=== PATIENT | female | born 1995 | race Caucasian/White ===

== ENCOUNTER 2016-10-12 14:57 | Emergency (ER) | payer MEDICAID, OTHER ==
[2016-10-12 14:58] VITALS: BMI 25.6
[2016-10-12 15:48] VITALS: RESP 18; TEMP 98.2
--- NOTE | 2016-10-12 16:15 | C.PDOC ---
History Of Present Illness 21 yr old female who is 4 week , presents to the ER with complaints of pelvic pain for the past 2 days. Patient states she has not yet started care. Also denies fever, chills, chest pain, SOB, nausea, vomiting, dysuria, hematuria, incontinence, vaginal bleeding, vaginal discharge or back pain. Time Seen by Provider: 10/12/16 15:34 Chief Complaint (Nursing): Abdominal Pain History Per: Patient History/Exam Limitations: no limitations Onset/Duration Of Symptoms: Days (2 days) Past Medical History Reviewed: Historical Data, Nursing Documentation, Vital Signs Vital Signs: Last Vital Signs Temp 98.2 F 10/12/16 18:35 Pulse 77 10/12/16 18:35 Resp 18 10/12/16 18:35 BP 102/69 10/12/16 18:35 Pulse Ox 96 10/12/16 18:35 - Medical History PMH: Asthma, Depression Family History: States: No Known Family Hx - Social History Hx Tobacco Use: No Hx Alcohol Use: No Hx Substance Use: No Review Of Systems Except As Marked, All Systems Reviewed And Found Negative. Constitutional: Negative for: Fever, Chills Cardiovascular: Negative for: Chest Pain Respiratory: Negative for: Shortness of Breath Gastrointestinal: Negative for: Nausea, Vomiting Genitourinary: Positive for: Pelvic Pain. Negative for: Dysuria, Incontinence, Hematuria, Vaginal Discharge, Vaginal Bleeding Musculoskeletal: Negative for: Back Pain Physical Exam - Physical Exam Appears: Well, Non-toxic, No Acute Distress Skin: Warm, Dry, No Rash Head: Atraumatic, Normacephalic Oral Mucosa: Moist Neck: Normal, Normal ROM, Supple Chest: Symmetrical, No Tenderness Cardiovascular: Rhythm Regular, No Murmur Respiratory: Normal Breath Sounds, No Rales, No Rhonchi, No Stridor, No Wheezing Gastrointestinal/Abdominal: Normal Exam, Soft, No Tenderness, No Guarding, No Rebound Extremity: Normal ROM, No Swelling Neurological/Psych: Oriented x3, Normal Speech, Normal Motor ED Course And Treatment O2 Sat by Pulse Oximetry: 100 - CT Scan/US US CT/US Interpretation: Impression: No intrauterine gestational sac identified. Medical Decision Making Medical Decision Making: PLAN: * US - Transvaginal * BETA HCG * Urinalysis As discussed with pt Quant only ~500 US empty uterus ?corpus luteal cyst on left Early IUV vs ectopic Pt instructed to return to the ED in 2 days for repeat evaluation, return at once if pain or bleeding Disposition Counseled Patient/Family Regarding: Diagnosis, Need For Followup - Disposition Disposition: HOME/ ROUTINE Disposition Time: 18:16 Condition: GOOD Additional Instructions: Return to the ED in 2 days to have repeat evaluation Return at once for any new or worsening symptoms Instructions: Abdominal Pain in (ED) Print Language: ALBANIAN - Clinical Impression Clinical Impression: Abdominal pain during - Scribe Statement The provider has reviewed the documentation as recorded by the Bibi Pedroza Provider Attestation: All medical record entries made by the Bibi were at my direction and personally dictated by me. I have reviewed the chart and agree that the record accurately reflects my personal performance of the history, physical exam, medical decision making, and the department course for this patient. I have also personally directed, reviewed, and agree with the discharge instructions and disposition.
[2016-10-12 17:02] LABS: RBC URINE 2 /hpf (0-3); URINE BACTERIA RARE (<OCC); URINE BILIRUBIN NEGATIVE (NEGATIVE); URINE BLOOD NEGATIVE (NEGATIVE); URINE COLOR Yellow (YELLOW); URINE GLUCOSE (UA) NORMAL (Normal); URINE KETONE NEGATIVE (NEGATIVE); URINE LEUKOCYTE ESTERASE NEG Leu/uL (Negative); URINE PROTEIN NEGATIVE (NEGATIVE); URINE UROBILINOGEN NORMAL mg/dL (0.2-1.0); WBC URINE 2 /hpf (0-5)
--- NOTE | 2016-10-12 17:55 | US ---
Indication: 4 weeks , pain, no bleeding Comparison: Pelvic ultrasound performed 06/12/16 Technique: Real-time transabdominal pelvic ultrasound was performed. In addition a transvaginal pelvic ultrasound was necessary to better depict pelvic anatomy Findings: The uterus measures approximately 8.6 x 4.3 x 5.0 cm. Anteverted. Cervix length measures approximately 4.0 cm. Endometrium measures approximately 1 cm in diameter. No evidence of intrauterine gestational sac. The right ovary measures 3.1 x 1.4 x 2.3 cm. 0.7 x 0.6 x 0.6 cm echogenic focus within the right ovary, indeterminate. The left ovary measures 3.1 x 2.8 x 2.3 cm. 1.3 x 1.2 x 1.2 cm complex left cystic lesion, possibly corpus luteal cyst. Blood flow was demonstrated to both ovaries. Pelvic free fluid is noted within the cul-de-sac. Impression: No intrauterine gestational sac identified. If indeed the patient is based on serum beta HCG values, the sonographic findings represent either: Very early IUP; embryonic demise; ectopic gestation. Follow-up with serial quantitative serum beta HCG measurements and post OBGYN follow-up is mandatory, since ectopic gestation cannot be excluded based only on sonographic findings. 1.3 cm suspected left corpus luteal cyst. Indeterminate 0.7 cm echogenic focus within the right ovary. Recommend continued attention on follow-up ultrasounds. Small pelvic free fluid.
[2016-10-12 18:35] VITALS: BP 102/69; PULSE 77
[2016-10-15 16:08] VITALS: O2SAT 100
== END 2016-10-12 18:35 | disposition home or self-care (01) ==
LOC: C.ER 14:57
DX: O26.891 Other specified pregnancy related conditions, first trimester (principal); R10.9 Unspecified abdominal pain; Z3A.01 Less than 8 weeks gestation of pregnancy

== ENCOUNTER 2016-10-23 19:16 | Emergency (ER) | payer MEDICAID, OTHER ==
[2016-10-23 19:16] VITALS: BMI 25.6
[2016-10-23] MEDS ORDERED: Sodium Chloride 0.9% 1,000 ML IV ONE (20:00)
--- NOTE | 2016-10-23 20:12 | C.PDOC ---
History Of Present Illness Patient is a 21 year old female who presents to the ER with a complaint of vaginal spotting and cramping abdominal pain. Patient states she is 6 weeks and her LMP was September 03. Patient also notes some bleeding occurring earlier. Patient denies fever, chills, nausea, vomiting or diarrhea. Chief Complaint (Nursing): Abdominal Pain History Per: Patient History/Exam Limitations: no limitations Onset/Duration Of Symptoms: Hrs Current Symptoms Are (Timing): Still Present Location Of Pain/Discomfort: Suprapubic Quality Of Discomfort: Cramping Associated Symptoms: denies: Fever, Chills, Nausea, Vomiting, Diarrhea Alleviating Factors: None Recent travel outside of the [place]: No Abnormal Vaginal Bleeding: Yes Past Medical History Reviewed: Historical Data, Nursing Documentation, Vital Signs Vital Signs: Last Vital Signs Temp 98 F 10/23/16 19:37 Pulse 63 10/23/16 19:37 Resp 22 10/23/16 19:37 BP 115/63 10/23/16 19:37 Pulse Ox 99 10/23/16 22:42 - Medical History PMH: Asthma, Depression Surgical History: No Surg Hx Family History: States: Unknown Family Hx - Social History Hx Tobacco Use: No Hx Alcohol Use: No Hx Substance Use: No - Immunization History Hx Tetanus Toxoid Vaccination: No Hx Influenza Vaccination: No Hx Pneumococcal Vaccination: No Review Of Systems Constitutional: Negative for: Fever, Chills Gastrointestinal: Positive for: Abdominal Pain (Cramping). Negative for: Nausea , Vomiting, Diarrhea Genitourinary: Positive for: Vaginal Bleeding Physical Exam - Physical Exam Appears: Well, Non-toxic Skin: Normal Color, Warm, Dry Head: Atraumatic, Normacephalic Eye(s): bilateral: Normal Inspection, EOMI Oral Mucosa: Moist Chest: Symmetrical, No Tenderness Cardiovascular: Rhythm Regular, No Murmur Respiratory: Normal Breath Sounds, No Rales, No Rhonchi, No Wheezing Gastrointestinal/Abdominal: Soft, Tenderness (hypogastric), No Guarding, No Rebound Pelvic: Normal Speculum Exam, No Vaginal Bleeding, No Cervical Motion Tenderness , No Adnexal Tenderness, Other (Old blood from previous bleed) Neurological/Psych: Oriented x3, Normal Speech, Normal Cognition ED Course And Treatment - Laboratory Results Result Diagrams: 10/23/16 20:13 10/23/16 20:13 O2 Sat by Pulse Oximetry: 99 (Room air) Pulse Ox Interpretation: Normal - CT Scan/US Transvaginal US Other Rad Studies (CT/US): Interpreted By Me, Read By Radiologist CT/US Interpretation: IMPRESSION: 1. Single live intrauterine gestation. bradycardia. Close followup is recommended. 2. Possible RIGHT ovarian dermoid. 3. Incidental/non-acute findings are described above. Progress Note: Blood work, urinalysis and transvaginal US ordered. IV fluids administered. Disposition Counseled Patient/Family Regarding: Diagnosis - Disposition Referrals: at [facility] [Outside] Disposition: HOME/ ROUTINE Disposition Time: 22:41 Condition: STABLE Instructions: Threatened Miscarriage (ED) Forms: Gen Discharge Inst Syriac Print Language: KHMER - POA Present On Arrival: None - Clinical Impression Clinical Impression: Vaginal bleeding, Threatened in early - Scribe Statement The provider has reviewed the documentation as recorded by the Scribe Sidney Randall All medical record entries made by the Scribe were at my direction and personally dictated by me. I have reviewed the chart and agree that the record accurately reflects my personal performance of the history, physical exam, medical decision making, and the department course for this patient. I have also personally directed, reviewed, and agree with the discharge instructions and disposition.
[2016-10-23 20:19] LABS: BASO # 0.1 K/uL (0.0-0.2); BASO % 0.5 % (0.0-2.0); EOS # 0.1 K/uL (0.0-0.7); EOS % 0.5 % (0.0-4.0); HEMATOCRIT 37.5 % (34.0-47.0); LYMPH # 3.8 K/uL (1.0-4.3); LYMPH % 32.8 % (20.0-40.0); MEAN CELL VOLUME 90.5 fL (81.0-99.0); MEAN CORPUSCULAR HGB CONC 34.3 g/dL (33.0-37.0); MEAN PLATELET VOLUME 8.5 fL (7.2-11.7); MONO # 0.7 K/uL (0.0-0.8); MONO % 6.5 % (0.0-10.0); RED CELL DISTRIBUTION WIDTH 12.6 % (11.5-14.5); WHITE BLOOD COUNT 11.5 K/uL (4.8-10.8)
[2016-10-23 20:23] LABS: RBC URINE < 1 /hpf (0-3); URINE BILIRUBIN NEGATIVE (NEGATIVE); URINE COLOR Colorless (YELLOW); URINE GLUCOSE (UA) NORMAL (Normal); URINE KETONE NEGATIVE (NEGATIVE); URINE LEUKOCYTE ESTERASE NEG Leu/uL (Negative); URINE PROTEIN NEGATIVE (NEGATIVE); URINE UROBILINOGEN NORMAL mg/dL (0.2-1.0); WBC URINE 1 /hpf (0-5)
[2016-10-23 20:26] LABS: CHLORIDE 99 mmol/L (98-107)
[2016-10-23 20:27] LABS: INR 1.2; SODIUM 136 mmol/L (132-148)
[2016-10-23 20:28] LABS: POTASSIUM 3.7 mmol/L (3.6-5.2)
[2016-10-23 20:29] LABS: URINE BLOOD NEGATIVE (NEGATIVE)
[2016-10-23 20:30] LABS: ALB/GLOB RATIO 1.2 (1.0-2.1); ALKALINE PHOSPHATASE 55 U/L (38-126); ALT/SGPT 19 U/L (9-52); AST/SGOT 19 U/L (14-36); BILIRUBIN,TOTAL 0.4 mg/dL (0.2-1.3); BLOOD UREA NITROGEN 12 mg/dL (7-17); CARBON DIOXIDE 26 mmol/L (22-30); GFR AFRICAN-AMERICAN > 60; GLUCOSE,RANDOM 82 mg/dL (65-105); TOTAL PROTEIN 7.2 g/dL (6.3-8.3)
[2016-10-23 20:31] LABS: CALCIUM 8.9 mg/dl (8.6-10.4)
--- NOTE | 2016-10-23 22:21 | US ---
EXAM: US , Transvaginal CLINICAL HISTORY: 21 years old, female; Signs and symptoms; Lmp or gestational age (in weeks): 09/13/2016; Other: Preg/bleeding; ; Additional info: Vaginal bleed TECHNIQUE: Real-time transvaginal obstetrical ultrasound of the maternal pelvis and a first trimester with image documentation. Transvaginal imaging was used for better evaluation of the fetus and adnexa. COMPARISON: PELVIS/TRANSVAG US 06/12/2016 8:02:19 PM FINDINGS: Gestation: Single live intrauterine gestation. heart rate of 93 beats per minute. [place]-rump length of 0.26 cm, correlating with gestational age of 5 weeks 6 days. Uterus/cervix: No subchorionic hemorrhage. No cervical dilatation or effacement. Ovaries: RIGHT ovary: 0.5 x 0.5 x 0.7 cm hyperechoic lesion. LEFT ovary: Probable corpus luteal cyst. No adnexal masses. Free fluid: No significant free fluid. IMPRESSION: 1. Single live intrauterine gestation. bradycardia. Close followup is recommended. 2. Possible RIGHT ovarian dermoid. 3. Incidental/non-acute findings are described above.
[2016-10-23 22:57] VITALS: BP 97/58; PULSE 80; RESP 18; TEMP 97.8; O2SAT 100
== END 2016-10-23 22:57 | disposition home or self-care (01) ==
LOC: C.ER 19:16
DX: O20.0 Threatened abortion (principal); Z3A.01 Less than 8 weeks gestation of pregnancy
CPT/HCPCS: 76817; 80053; 81001; 84702; 85025; 85610; 85730; 86850; 86900; 96360; 99284; J7040

== ENCOUNTER 2016-11-22 17:38 | Emergency (ER) | payer MEDICAID ==
[2016-11-22 17:38] VITALS: BMI 25.6
[2016-11-22 17:43] VITALS: TEMP 98.5
[2016-11-22 18:19] VITALS: BP 106/58; PULSE 85; RESP 16; O2SAT 99
--- NOTE | 2016-11-22 19:13 | C.PDOC ---
History Of Present Illness Pt left without being seen. Chief Complaint (Nursing): Back Pain Past Medical History Vital Signs: Last Vital Signs Temp 98.5 F 11/22/16 17:42 Pulse 85 11/22/16 18:13 Resp 16 11/22/16 18:13 BP 106/58 L 11/22/16 18:13 Pulse Ox 99 11/23/16 09:01 - Medical History PMH: Asthma, Depression Family History: States: Unknown Family Hx - Social History Hx Tobacco Use: No Hx Alcohol Use: No Hx Substance Use: No - Immunization History Hx Tetanus Toxoid Vaccination: No Hx Influenza Vaccination: No Hx Pneumococcal Vaccination: No ED Course And Treatment O2 Sat by Pulse Oximetry: 99 Disposition - Disposition Disposition: LEFT W/O BEING SEEN - ER ONLY Disposition Time: 21:10 Condition: UNKNOWN - POA Present On Arrival: None - Clinical Impression Clinical Impression: Back pain - Scribe Statement The provider has reviewed the documentation as recorded by the Scribe Alla harper All medical record entries made by the Scribe were at my direction and personally dictated by me. I have reviewed the chart and agree that the record accurately reflects my personal performance of the history, physical exam, medical decision making, and the department course for this patient. I have also personally directed, reviewed, and agree with the discharge instructions and disposition.
== END 2016-11-22 19:11 | disposition left against medical advice (07) ==
LOC: C.ER 17:38
DX: M54.9 Dorsalgia, unspecified (principal); Z02.9 Encounter for administrative examinations, unspecified

== ENCOUNTER 2017-01-23 13:03 | Emergency (ER) | payer MEDICAID ==
[2017-01-23 13:03] VITALS: BMI 25.6
[2017-01-23 13:20] VITALS: BP 109/67; PULSE 85; RESP 20; TEMP 98.6; O2SAT 100
[2017-01-23 14:55] LABS: RBC URINE < 1 /hpf (0-3); URINE BILIRUBIN NEGATIVE (NEGATIVE); URINE BLOOD NEGATIVE (NEGATIVE); URINE COLOR Yellow (YELLOW); URINE GLUCOSE (UA) NORMAL (Normal); URINE KETONE NEGATIVE (NEGATIVE); URINE LEUKOCYTE ESTERASE NEG Leu/uL (Negative); URINE PROTEIN NEGATIVE (NEGATIVE); URINE UROBILINOGEN NORMAL mg/dL (0.2-1.0); WBC URINE 3 /hpf (0-5)
--- NOTE | 2017-01-23 15:28 | C.PDOC ---
History Of Present Illness 21 y/o female, 18 weeks , presents to ED for evaluation of brief episode of anxiety [employer]. Patient states her symptoms have now resolved. Pt has seen here several times throughout her for similar symptoms with negative work up. Pt denies monitoring today. Otherwise, denies any chest pain, shortness of breath, headache, fever, chills, cough, nausea, vomiting, diarrhea, changes in bowel habits, dysuria, hematuria, frequency, flank pain, vaginal discharge, or vaginal bleeding. Time Seen by Provider: 01/23/17 14:09 Chief Complaint (Nursing): Palpitations History Per: Patient History/Exam Limitations: no limitations Onset/Duration Of Symptoms: Hrs Current Symptoms Are (Timing): Gone Severity: None Pain Scale Rating Of: 0 Reports Recently: Seen In ED Recent travel outside of the [place]: No Additional History Per: Patient Past Medical History Reviewed: Historical Data, Nursing Documentation, Vital Signs Vital Signs: Last Vital Signs Temp 98.6 F 01/23/17 13:15 Pulse 85 01/23/17 13:15 Resp 20 01/23/17 15:23 BP 109/67 01/23/17 13:15 Pulse Ox 100 01/23/17 15:53 - Medical History PMH: Asthma, Depression Family History: States: Unknown Family Hx - Social History Hx Tobacco Use: No Hx Alcohol Use: No Hx Substance Use: No - Immunization History Hx Tetanus Toxoid Vaccination: No Hx Influenza Vaccination: No Hx Pneumococcal Vaccination: No Review Of Systems Except As Marked, All Systems Reviewed And Found Negative. Constitutional: Negative for: Fever, Chills Cardiovascular: Negative for: Chest Pain, Palpitations Respiratory: Negative for: Cough, Shortness of Breath Gastrointestinal: Negative for: Nausea, Vomiting, Abdominal Pain Genitourinary: Negative for: Dysuria, Frequency, Hematuria, Vaginal Discharge, Vaginal Bleeding, Pelvic Pain Musculoskeletal: Negative for: Back Pain Neurological: Negative for: Headache, Dizziness Psych: Positive for: Anxiety Physical Exam - Physical Exam Appears: Non-toxic, No Acute Distress (comfortable), Other (calm, cooperative) Skin: Normal Color, Warm, Dry Head: Atraumatic, Normacephalic Eye(s): bilateral: Normal Inspection, EOMI Oral Mucosa: Moist Neck: Normal ROM, Supple Chest: Symmetrical Cardiovascular: Rhythm Regular, No Murmur Respiratory: Normal Breath Sounds, No Rales, No Rhonchi, No Wheezing Gastrointestinal/Abdominal: Soft, No Tenderness Extremity: Bilateral: Atraumatic, Normal ROM Neurological/Psych: Oriented x3, Normal Speech, Normal Cognition ED Course And Treatment - Laboratory Results Lab Interpretation: Normal (UA neg) O2 Sat by Pulse Oximetry: 100 (on RA) Pulse Ox Interpretation: Normal Medical Decision Making Medical Decision Making: pret approx 18 weeks, with normal progression acute near-syncope with panic/anxiety-like symptomology in pt with h/o same. No w/u required as pt asymptomatic 6 hours later and h/o same with neg w/u's UA neg pt eloped prior to d/c w normal UA results. Disposition Doctor Will See Patient In The: Office - Disposition Disposition: ELOPEMENT - ER ONLY Disposition Time: 15:00 Condition: GOOD Forms: [employer] (Colombian) - Clinical Impression Clinical Impression: Palpitations, Anxiety, - Scribe Statement The provider has reviewed the documentation as recorded by the Mayelinibhari Benjamin All medical record entries made by the Mayelinibhari were at my direction and personally dictated by me. I have reviewed the chart and agree that the record accurately reflects my personal performance of the history, physical exam, medical decision making, and the department course for this patient. I have also personally directed, reviewed, and agree with the discharge instructions and disposition.
--- NOTE | 2017-01-23 20:05 | CARD ---
APPROVED REPORT EKG Measurement Heart [id number] <Conclusion> Normal sinus rhythm Normal ECG
== END 2017-01-23 15:21 | disposition left against medical advice (07) ==
LOC: C.ER 13:03
DX: O26.892 Other specified pregnancy related conditions, second trimester (principal); F41.9 Anxiety disorder, unspecified; R00.2 Palpitations; Z3A.18 18 weeks gestation of pregnancy

== ENCOUNTER 2017-03-13 13:14 | Emergency (ER) | payer MEDICAID ==
[2017-03-13 14:54] LABS: RBC URINE 1 /hpf (0-3); URINE BACTERIA OCC (<OCC); URINE BILIRUBIN NEGATIVE (NEGATIVE); URINE BLOOD NEGATIVE (NEGATIVE); URINE COLOR Yellow (YELLOW); URINE GLUCOSE (UA) NORMAL (Normal); URINE KETONE NEGATIVE (NEGATIVE); URINE LEUKOCYTE ESTERASE NEG Leu/uL (Negative); URINE PROTEIN NEGATIVE (NEGATIVE); URINE UROBILINOGEN NORMAL mg/dL (0.2-1.0); WBC URINE 5 /hpf (0-5)
--- NOTE | 2017-03-13 15:03 | OBHP ---
Datetime: 03/13/2017 14:22 IP Adm Impression: No Active Labor IP Chief Complaint Other: abdominal pain and back pain Admit Comment, IP Provider: chief compalint-abdominal pain and back pain HPI 21 y/o at 27weeks and 3 days with c/o abdominal pain and bacl pain.also feels she has mike e discharge.denies vaginal bleeding DEnies fever , chills, burning urination or dysuria 12 point ros neg except as stated in HPI PMH denies PSH denies OBGYN HX ' NVDX2 Social hx denies tobacco,alcohol or illicit drug use Exam see exam section A/P Patient with x/o abdominal pain and back pain.cervix closedl.clinically no signs of labor.no c va tenderness -send UA -monitor closely 3.01pm UA neg for nitrites and LE Patient feels betetr when lying down A/P Ptaient with discomfort due to pregnacy.no active labor.membranes clinically intact -patient discharged homne -follow up in clinic this week -ptl,pprom precautions given Pelvic Type - PN: Adequate Extremities - PN: Normal Abdomen - PN: Normal Back - PN: Normal Lungs - PN: Normal Heart - PN: Normal Neurologic - PN: Normal General - PN: Normal Contraction Comments Provider: none Comments, ACOG Physical Exam: speculum exam-no pooling; nitrazine and ferning neg cervix closedl. thick and high Gestation - Est Wks by US: 27.3 EGA AdmitDate IP: 27.3 Vital Signs Provider: Reviewed; Within Normal Limits IP Chief Complaint: Other FHR Category Provider Fetus A: Category I Dilatation, Provider: 0 Effacement, Provider: thick Station, Provider: high Genitourinary Exam: Normal DTRs - PN: Normal
[2017-03-13 19:18] VITALS: BP 119/65; PULSE 82; RESP 18; TEMP 98.2
== END 2017-03-13 15:07 | disposition home or self-care (01) ==
LOC: C.EROB 13:14
DX: O26.892 Other specified pregnancy related conditions, second trimester (principal); R10.9 Unspecified abdominal pain; M54.9 Dorsalgia, unspecified; Z3A.27 27 weeks gestation of pregnancy

== ENCOUNTER 2017-05-22 12:09 | Emergency (ER) | payer MEDICAID ==
--- NOTE | 2017-05-22 12:59 | OBHP ---
Datetime: 05/22/2017 12:31 IP Adm Impression: No Active Labor; Intact Membranes IP Admit Plan: Discharge home Admit Comment, IP Provider: chief complaint-lekaing of fluid HPI 21 y/o at 35.6 wga with c/o ane psidoe of leaking small amount of fluid.Patient denies na usea, vomiting, headache, chest pain, shortness of breath, numbness or tingling in hands and feet course uncomplicated PMH denies PSH denies OBGYN HX ' NVDX2 SOCIAL HX -Denies tobacco,alcohol or illicit drug use Exam see exam section A/P Patient at 35.6 wga with c/o episode of leaking of fluid and pelvic pressure.cervix closed.florencio wesley clinically intact -discharge home -follow up in clinic next week Pelvic Type - PN: Adequate Extremities - PN: Normal Abdomen - PN: Normal Back - PN: Normal Lungs - PN: Normal Heart - PN: Normal General - PN: Normal Weight - Estimated: 2800 Presentation-Admit: Vertex Membranes, Provider: Intact Gestation - Est Wks by US: 35.6 Pool Provider: Negative Nitrazine Provider: Negative Ferning Provider: Negative IP Hx Assessment: The History has been Reviewed and is Current EGA AdmitDate IP: 35.6 Vital Signs Provider: Reviewed; Within Normal Limits IP Chief Complaint: Suspected ruptured membranes FHR Category Provider Fetus A: Category I Dilatation, Provider: 0 Effacement, Provider: thick Station, Provider: high Genitourinary Exam: Normal DTRs - PN: Normal
[2017-05-22 16:55] VITALS: BP 114/64; PULSE 98
== END 2017-05-22 12:54 | disposition home or self-care (01) ==
LOC: C.EROB 12:09
DX: O47.03 False labor before 37 completed weeks of gestation, third trimester (principal); Z3A.35 35 weeks gestation of pregnancy

== ENCOUNTER 2017-06-13 13:26 | Emergency (ER) | payer MEDICAID ==
[2017-06-13 13:40] VITALS: BMI 29.6
--- NOTE | 2017-06-13 14:01 | OBHP ---
Datetime: 06/13/2017 13:52 IP Adm Impression: Term, intrauterine Admit Comment, IP Provider: at 39weeks came with c/o dec fm from the morning. baby moving less. no ctxs, vb.pt feels baby moving now. obhx 1 xsab, 2 x pmh den med pnv all nkda psh den soch de ve closed nst 130 mod jase ctg1 a/p at 39weeks dec fm nst bpp cont susan and efm cont close observ Pelvic Type - PN: Adequate Extremities - PN: Normal Abdomen - PN: Normal Back - PN: Normal Breast - PN: Normal Lungs - PN: Normal Heart - PN: Normal Thyroid - PN: Normal Neurologic - PN: Normal HEENT - PN: Normal General - PN: Normal FHR - Baseline A Provider: 130 Contraction Comments Provider: occ Comments, ACOG Physical Exam: gravid,non tender ext no edema,no calf ten EGA AdmitDate IP: 39.0 Vital Signs Provider: Reviewed; Within Normal Limits IP Chief Complaint: Decreased movement NICHD Variability Prov Fetus A: Moderate 6-25bpm NICHD Accel Fetus A IP Provider: [id number] FHR Category Provider Fetus A: Category I Genitourinary Exam: Normal DTRs - PN: Normal
--- NOTE | 2017-06-13 15:18 | US ---
OB limited/biophysical profile Indication: Decreased motion Comparison: Ob transvaginal ultrasound performed 10/23/16 Technique: Real-time ultrasound was performed through the pelvis. Findings: There is a single living fetus in vertex presentation. Posterior placenta. The placenta does not appear previa. Bilateral ovaries are not identified. Cervix length measures approximately 4.5 cm. The study was performed for the emergent evaluation of decreased motion, and the whole anatomic survey of the fetus was not performed. This should be performed on an outpatient elective basis as clinically warranted. Measurements and calculations: Fetus has a composite sonographic age of 36 weeks 6 days. This calculation is based on the biparietal diameter, head circumference, abdominal circumference, and femur length. Estimated heart rate 129.2 beats per min. Estimated weight 3059 g 458.9 g Biophysical profile: movements 2/2 breathing 2/2 tone 2/2 Amniotic fluid 2/2 Total score impression: 01/09 Impression: Single living fetus with a composite sonographic age of 36 weeks 6 days. Estimated heart rate 129.2 beats per min. Biophysical profile of 8 out of 8.
--- NOTE | 2017-06-13 15:38 | OBHP ---
Datetime: 06/13/2017 13:52 Admit Comment, IP Provider: at 39weeks came with c/o dec fm from the morning. baby moving less. no ctxs, vb.pt feels baby moving now. obhx 1 xsab, 2 x pmh den med pnv all nkda psh den soch de ve closed nst 130 mod jase ctg1 a/p at 39weeks dec fm nst bpp cont susan and efm cont close observ pt had sonogram bpp 8/8 nst 130 mod jase tg 1 dc home labor ins given p o hrationf/u pmd on sunday EGA AdmitDate IP: 39.0
--- NOTE | 2017-06-13 15:38 | OBDCSUM ---
Datetime: 06/13/2017 15:27 Discharged to, Provider: Home Follow up at, Provider: [facility] Disch Instr Activity: Normal activity Disch Instr Diet: Regular Discharge Time: 06/13/2017 15:28 Disch Referrals: None Disch Activity Restrictions: No lifting Discharge Comment, Provider: dc home labor ins given p o hrationf/u pmd on sunday Discharge Diagnosis Prov Other: 39 wek nst dec fm
[2017-06-13 21:43] VITALS: BP 124/57; PULSE 83; O2SAT 98
== END 2017-06-13 17:41 | disposition home or self-care (01) ==
LOC: C.EROB 13:26
DX: O36.8130 Decreased fetal movements, third trimester, not applicable or unspecified (principal); Z3A.39 39 weeks gestation of pregnancy

== ENCOUNTER 2017-06-19 14:55 | Inpatient (IN) | payer MEDICAID ==
[2017-06-19 18:46] VITALS: BMI 27.3
[2017-06-19] MEDS: Lactated Ringer's 1,000 ML IV SCH (19:45)
[2017-06-19] MEDS ORDERED: Penicillin G 5 Million Unit Vial IVPB ONE (20:18)
--- NOTE | 2017-06-19 20:46 | OBADHP ---
Datetime: 06/19/2017 20:40 Admit Comment, IP Provider: chief complaint-scheduled induction of labor HPI 21 y/o at 40.6wga here for IOL due to post dates course uncomplicated; care with [facility] PMH denies PSH denies OBGYN HX ' NVDX2 Social hx denies tobacco,alcohol or illicit drug use Exam see exam section A/P 21 y/o at 40.6 wga here for induction of labor due to postdate -cervidil placed -start pen G for gba -monitir closely Pelvic Type - PN: Adequate Extremities - PN: Normal Abdomen - PN: Normal Back - PN: Normal Lungs - PN: Normal Heart - PN: Normal Neurologic - PN: Normal General - PN: Normal Weight - Estimated: 3200 Presentation-Admit: Vertex Contraction Comments Provider: irregular Gestation - Est Wks by US: 40.6 IP Hx Assessment: The History has been Reviewed and is Current Vital Signs Provider: Reviewed; Within Normal Limits IP Chief Complaint: Scheduled induction of labor FHR Category Provider Fetus A: Category I Dilatation, Provider: 1 Effacement, Provider: 50 Station, Provider: -3 Genitourinary Exam: Normal DTRs - PN: Normal EGA AdmitDate IP: 40.6 IP Adm Impression: Postterm, intrauterine IP Admit Plan: Admit to unit; Initiate labor induction protocol Datetime: 06/13/2017 13:52 Breast - PN: Normal Thyroid - PN: Normal HEENT - PN: Normal FHR - Baseline A Provider: 130 Comments, ACOG Physical Exam: gravid,non tender ext no edema,no calf ten NICHD Variability Prov Fetus A: Moderate 6-25bpm NICHD Accel Fetus A IP Provider: [id number] Datetime: 05/22/2017 12:31 Membranes, Provider: Intact Pool Provider: Negative Nitrazine Provider: Negative Ferning Provider: Negative Datetime: 03/13/2017 14:22 IP Chief Complaint Other: abdominal pain and back pain
[2017-06-19 20:47] LABS: BASO % 0.3 % (0.0-2.0); EOS # 0.1 K/uL (0.0-0.7); EOS % 0.4 % (0.0-4.0); LYMPH # 2.7 K/uL (1.0-4.3); LYMPH % 21.8 % (20.0-40.0); MEAN CORPUSCULAR HEMOGLOBIN 28.9 pg (27.0-31.0); MEAN CORPUSCULAR HGB CONC 33.3 g/dL (33.0-37.0); MEAN PLATELET VOLUME 8.2 fL (7.2-11.7); MONO # 1.1 K/uL (0.0-0.8); MONO % 8.5 % (0.0-10.0); NEUT # 8.6 K/uL (1.8-7.0); NRBC % 0.2 % (0.0-2.0); RBC 3.81 Mil/uL (3.80-5.20); RED CELL DISTRIBUTION WIDTH 14.1 % (11.5-14.5); WHITE BLOOD COUNT 12.5 K/uL (4.8-10.8)
[2017-06-19 20:48] LABS: SQUAMOUS EPITHIAL 4 /hpf (0-5); URINE BACTERIA RARE (<OCC); URINE BILIRUBIN NEGATIVE (NEGATIVE); URINE BLOOD NEGATIVE (NEGATIVE); URINE CLARITY Clear (Clear); URINE COLOR Yellow (YELLOW); URINE GLUCOSE (UA) NORMAL (Normal); URINE LEUKOCYTE ESTERASE NEG Leu/uL (Negative); URINE NITRATE NEGATIVE (NEGATIVE); URINE PROTEIN NEGATIVE (NEGATIVE); URINE UROBILINOGEN NORMAL mg/dL (0.2-1.0)
[2017-06-19 20:51] LABS: ALBUMIN 3.4 g/dL (3.5-5.0); ALT/SGPT 21 U/L (9-52); AST/SGOT 21 U/L (14-36); BLOOD UREA NITROGEN 6 mg/dL (7-17); CALCIUM 8.1 mg/dl (8.6-10.4); GFR AFRICAN-AMERICAN > 60; GFR NON-AFRICAN AMERICAN > 60
[2017-06-19 20:52] LABS: ALB/GLOB RATIO 0.9 (1.0-2.1); MEAN CELL VOLUME 86.8 fL (81.0-99.0)
[2017-06-20] MEDS: Lactated Ringer's 1,000 ML IV SCH (08:18)
[2017-06-20] MEDS ORDERED: Bupivacaine 0.125%/FentaNYL 200 ML EPI ONE (08:20)
[2017-06-20] MEDS ORDERED: Oxytocin 30 UNIT 30 UNITS/500 ML BAG IV ONE (13:12)
--- NOTE | 2017-06-20 13:17 | OBPN ---
Datetime: 06/20/2017 13:13 IP Progress Impression: Normal progression of labor IP Procedures: Artificial ROM; Sterile Vag Exam FHR - Baseline A Provider: 130 IP Progress Note Comment: pt was examined at bed side ve 3/70/-2 arom clear cont pitocin anticipate Vital Signs Provider: Reviewed NICHD Accel Fetus A IP Provider: [id number] FHR Category Provider Fetus A: Category I NICHD Variability Prov Fetus A: Moderate 6-25bpm Dilatation, Provider: 3 Effacement, Provider: 70 Station, Provider: -2 Datetime: 06/19/2017 20:40 Contraction Comments Provider: irregular Gestation - Est Wks by US: 40.6 Weight - Estimated: 3200 Presentation-Admit: Vertex Datetime: 05/22/2017 12:31 Pool Provider: Negative Nitrazine Provider: Negative Ferning Provider: Negative Membranes, Provider: Intact
[2017-06-20] MEDS ORDERED: Oxytocin 30 UNIT 30 UNITS/500 ML BAG IV PRN (13:29)
[2017-06-20] MEDS ORDERED: Lidocaine 2% Inj (20ml) ONE (14:14)
[2017-06-20] MEDS ORDERED: Oxycodone/Acetaminophen 5/325 mg Tab PO PRN ×2 (15:53)
[2017-06-20] MEDS ORDERED: Benzocaine/Menthol 20%-0.5% Topical Spray (60 ml) TOP SCH (16:00)
--- NOTE | 2017-06-20 20:07 | OBDS ---
DELIVERY PERSONNEL Delivery Doctor: Frantz Saleem MD Bait Maker: Quiana Hummel RN Anesthesiologist: Dr Gardner Resident: Twyla Bronson MATERNAL INFORMATION Delivery Anesthesia: Epidural Medications in Delivery: pitocin Estimated Blood Loss (ml): 300 Placenta Cultured: Yes Maternal Complications: None RN Comments: liveborn male , 9/9, patient and in stable condition Provider Comments: This a 21 year old now [id number] delivered a viable male via over intact perineum on 06/20/2017 at 15:33pm. The infant's head was delivered in a controlled manner. Loose nuch al X1 was reduced. The 's shoulders were delivered atraumatically. The 's body was delive red without difficulty. Infant's mouth and nose were suctioned with bulb syringe. The cord clamped an d cut. Cord gas and blood were collected. Infant was placed on mother's abdomen. An intact placenta w ith 3 vessels cord was delivered. Uterus firm with fundal massage and IV pitocin. EBL 300ml. The infa nt weighed 6 lbs 8oz with APGARS 9 and 9. Mom and baby are recovering in stable condition. All sponge counts and instruments are correct. Dr. Saleem was present for the delivery. LABOR SUMMARY EDC: 06/13/2017 00:00 No. Babies in Womb: 1 LABOR INFORMATION Reason for Induction: Other Reason for Induction Other: post dates Onset of Labor: 06/20/2017 14:10 Complete Dilatation: 06/20/2017 15:26 Cervical Ripening Agents: Cervidil (Annotations: cervidil removed by Dr Saleem) Oxytocin: Augmentation Group B Beta Strep: Positive (Annotations: 05/15/2017) Antibiotics # of Doses: 5 Antibiotics Time of Last Dose: 1402 Steroids Given: None Reason Steroids Not Administered: Not Applicable MEMBRANES Membranes Rupture Method: Artificial Rupture of Membranes: 06/20/2017 13:12 Length of Rupture (hrs): 2.35 Amniotic Fluid Color: Bloody Amniotic Fluid Amount: Small Amniotic Fluid Odor: None STAGES OF LABOR Stage 1 hrs: 1 Stage 1 min: 16 Stage 2 hrs: 0 Stage 2 min: 7 Stage 3 hrs: 0 Stage 3 min: 5 Total Time in Labor hrs: 1 Total Time in Labor min: 28 VAGINAL DELIVERY Episiotomy: None Laceration Extension: N/A Laceration Type: None Laceration Repair: Not Applicable Initial Vag Sponge Count: 11 Final Vag Sponge Count: 11 Initial Vag Sharps Count: 0 Final Vag Sharps Count: 0 Sponge Count Correct: Yes Sharps Count Correct: Yes BABY A INFORMATION Delivery Date/Time: 06/20/2017 15:33 Method of Delivery: Vaginal Born in Route : No : N/A Forceps: N/A Vacuum Extraction: N/A Shoulder Dystocia : No SHOULDER DYSTOCIA BABY A Infant Delivery Date/Time: 06/20/2017 15:33 PRESENTATION/POSITION BABY A Presentation: Cephalic Cephalic Presentation: Vertex Vertex Position: Left Occipital Anterior Breech Presentation: N/A PLACENTA INFORMATION BABY A Placenta Delivery Time : 06/20/2017 15:38 Placenta Method of Delivery: Spontaneous Placenta Status: Delivered SCORES BABY A Heart Rate 1 min: >100 bpm Resp Effort 1 min: Good Cry Reflex Irritability 1 min: Cough or Sneeze or Pulls Away Muscle Tone 1 min: Active Motion Color 1 min: Body [place], Extremities Blue Resuscitation Effort 1 min: Tactile Stimulation SCORE 1 MIN: 9 Heart Rate 5 min: >100 bpm Resp Effort 5 min: Good Cry Reflex Irritability 5 min: Cough or Sneeze or Pulls Away Muscle Tone 5 min: Active Motion Color 5 min: Body [place], Extremities Blue Resuscitation Effort 5 min: N/A SCORE 5 MIN: 9 INFANT INFORMATION BABY A Gestational Age at Delivery: 40.6 Gestational Status: Term Infant Outcome : Liveborn Infant Condition : Stable Sex: Male IDENTIFICATION/MEDS BABY A ID Band Number: [id number] Sensor Number: [id number] WEIGHT/LENGTH BABY A Birthweight (gms): 2955 Weight (lb): 6 Infant Weight (oz): 8 Infant Length Inches: 19.00 Infant Length cms: 48.3 CORD INFORMATION BABY A No. Cord Vessels: 3 Nuchal Cord : N/A Cord Blood Taken: Yes Infant Suction: Mouth; Nose ASSESSMENT BABY A Complications: None Physical Findings at Delivery: Within Normal Limits Respirations: Appears Normal Charge Lpn/ALS Called : No Care By: Surya Tatum RN Transferred To: Remains with Mother
[2017-06-21 08:58] LABS: BASO % 0.1 % (0.0-2.0); EOS # 0.1 K/uL (0.0-0.7); EOS % 0.6 % (0.0-4.0); HEMOGLOBIN 11.2 g/dL (11.0-16.0); LYMPH # 2.2 K/uL (1.0-4.3); LYMPH % 18.2 % (20.0-40.0); MEAN CELL VOLUME 87.3 fL (81.0-99.0); MEAN CORPUSCULAR HEMOGLOBIN 29.8 pg (27.0-31.0); MEAN CORPUSCULAR HGB CONC 34.2 g/dL (33.0-37.0); MEAN PLATELET VOLUME 8.5 fL (7.2-11.7); MONO # 0.7 K/uL (0.0-0.8); MONO % 5.7 % (0.0-10.0); NEUT % 75.4 % (50.0-75.0); RBC 3.74 Mil/uL (3.80-5.20); RED CELL DISTRIBUTION WIDTH 13.9 % (11.5-14.5); WHITE BLOOD COUNT 11.9 K/uL (4.8-10.8)
[2017-06-21] MEDS: Multiple Vitamins Tab PO SCH (10:53)
--- NOTE | 2017-06-21 17:28 | OBPPN ---
Datetime: 06/21/2017 16:40 PP Pain Prov: Within normal limits PP Nausea Prov: Denies PP Flatus Prov: Yes PP BM Prov: No PP Heart Prov: Normal PP Lungs Prov: Normal PP Abdomen/Uterus Prov: Normal PP Lochia Prov: Normal PP Extremities Prov: Normal PP Progress Prov: Normal PP Comments Phys Exam Prov: Abdomen: Soft, non-tender, +BS x4, fundus is firm and one finger breath below the umbilicus PP Impression Prov: Normal progression PP Plan Prov: Continue present management PP Progress Note Prov: Patient was seen and examined at bedside. Patient's pain is well-controlled. Patient reports moderate lochia, passing flatus, urinating without difficulty but denies bowel moveme nt. Patient denies nausea, vomiting, fever, chills, abdominal pain, chest pain, SOB and calf tenderne ss. Labs: 12.5>11.0/33.1<258 11.9>11.2/32.7<212 B+, Rubella Immune VS: BP:120/82, Temp: 97.1, HR; 97 Physical Examination: Gen: NAD Cardio: RRR, Normal S1, S2 Breast: Engorged, tender, nipples intact Pulm: CTA bilaterally Abdomen: Soft, non-tender, +BS, fundus is firm and slightly below the umbilicus A/P: 21 year old female s/p PPD #1 1. Stable, Afebrile 2. Pain control with motrin 3. Encourage ambulation and hydration 4. Encourage breast feeding 5. Continue post- management 6. Anticipate discharge tomorrow 7. Plans discussed with attending Twyla Bronson DO, PGY-1 Attending Note: Patient seen and evaluated by me with Resident. I agree with the above. Vital Signs Provider PP: Reviewed; Within Normal Limits
[2017-06-21 18:06] VITALS: RESP 20
[2017-06-22] MEDS: Multiple Vitamins Tab PO SCH (09:46)
--- NOTE | 2017-06-22 12:02 | OBPPN ---
Datetime: 06/22/2017 08:03 PP Pain Prov: Within normal limits PP Nausea Prov: Denies PP Flatus Prov: Yes PP BM Prov: Yes PP Heart Prov: Normal PP Lungs Prov: Normal PP Abdomen/Uterus Prov: Normal PP Lochia Prov: Normal PP CVA Tenderness Prov: Normal PP Extremities Prov: Normal PP Progress Prov: Normal PP Comments Phys Exam Prov: Abdomen: Soft, non-tender, +BS x4, fundus is firm and one finger breath below the umbilicus PP Impression Prov: Normal progression PP Plan Prov: Continue present management PP Progress Note Prov: Patient seen and examined at bedside. Patient's pain is well-controlled. Lizett ent reports moderate lochia, passing flatus, urinating without difficulty and has had 1 bowel movemen t. Patient denies nausea, vomiting, fever, chills, abdominal pain, chest pain, SOB and calf tendernes s. Labs: 12.5>11.0/33.1<258 11.9>11.2/32.7<212 B+, Rubella Immune VS: BP:111/72, Temp: 97.6, HR; 72 Physical Examination: Gen: NAD Cardio: RRR, Normal S1, S2 Breast: Engorged, tender, nipples intact Pulm: CTA bilaterally Abdomen: Soft, non-tender, +BS, fundus is firm and slightly below the umbilicus A/P: 21 year old female s/p PPD#2 1. Stable, Afebrile 2. Pain well controlled 3. Continue ambulation and hydration 4. Continue breast feeding dr villegas saw the pateint and agrees 5. Discharge today; Pelvic rest/nothing per vagina for 6 weeks, motrin for pain control, follow up in clinic in 6 weeks for post care 7. Plans discussed with attending Malina Castanon, PGY1 Vital Signs Provider PP: Reviewed; Within Normal Limits
--- NOTE | 2017-06-22 12:02 | OBDCSUM ---
Datetime: 06/22/2017 12:01 Discharged to, Provider: Home Follow up at, Provider: 6week Discharge Diagnosis, Provider: Term Delivered Follow up in weeks, Provider: clinic Disch Activity Restrictions: No exercising; No lifting; No driving; Minimize walking; Minimize stair -climbing; No sexual activity; Nothing in vagina - [place], tampons, douche Datetime: 06/13/2017 15:27 Discharge Diagnosis, Provider: Term Delivered Disch Activity Restrictions: No lifting; No driving; Minimize walking; No sexual activity; Nothing i n vagina - [place], tampons, douche
[2017-06-22] MEDS ORDERED: Influenza Vaccine 60 mcg/0.5 mL SYR (4YR UP) IM ONE (14:16)
[2017-06-22 22:20] VITALS: BP 112/73; PULSE 84; TEMP 97.8; O2SAT 98
== END 2017-06-22 15:45 | disposition home or self-care (01) | DRG 373 ==
LOC: C.4D 18:26 → C.4M 06-20 17:45
PROVIDERS: ADMIT Student in an Organized Health Care Education/Training Program; ATTEND Student in an Organized Health Care Education/Training Program
PROC: 10E0XZZ Delivery of Products of Conception, External Approach (ICD-10-PCS; principal; 2017-06-20)
DX: O48.0 Post-term pregnancy (principal); Z37.0 Single live birth; Z3A.40 40 weeks gestation of pregnancy

== ENCOUNTER 2017-11-22 10:13 | Emergency (ER) | payer MEDICAID ==
[2017-11-22 10:19] VITALS: BMI 24.1
[2017-11-22 10:22] VITALS: O2SAT 99
[2017-11-22 10:45] LABS: HCG,QUALITATIVE URINE NEGATIVE (NEGATIVE)
[2017-11-22 10:50] LABS: URINE BILIRUBIN NEGATIVE (NEGATIVE); URINE BLOOD NEGATIVE (NEGATIVE); URINE CLARITY Hazy (Clear); URINE COLOR Yellow (YELLOW); URINE GLUCOSE (UA) NORMAL (Normal); URINE LEUKOCYTE ESTERASE TRACE Leu/uL (Negative); URINE PROTEIN NEGATIVE (NEGATIVE); URINE UROBILINOGEN NORMAL mg/dL (0.2-1.0)
[2017-11-22 11:04] LABS: SQUAMOUS EPITHIAL 10 /hpf (0-5); URINE BACTERIA FEW (<OCC)
[2017-11-22 11:51] LABS: BASO % 0.3 % (0.0-2.0); EOS # 0.2 K/uL (0.0-0.7); EOS % 2.2 % (0.0-4.0); HEMOGLOBIN 13.5 g/dL (11.0-16.0); LYMPH # 2.2 K/uL (1.0-4.3); MEAN CELL VOLUME 89.4 fL (81.0-99.0); MEAN CORPUSCULAR HEMOGLOBIN 30.9 pg (27.0-31.0); MEAN CORPUSCULAR HGB CONC 34.6 g/dL (33.0-37.0); MEAN PLATELET VOLUME 8.9 fL (7.2-11.7); MONO # 0.5 K/uL (0.0-0.8); MONO % 5.9 % (0.0-10.0); NEUT # 6.1 K/uL (1.8-7.0); NEUT % 67.6 % (50.0-75.0); RBC 4.36 Mil/uL (3.80-5.20); RED CELL DISTRIBUTION WIDTH 13.1 % (11.5-14.5)
[2017-11-22 12:05] LABS: ALBUMIN 4.1 g/dL (3.5-5.0); BLOOD UREA NITROGEN 6 mg/dL (7-17); CALCIUM 8.9 mg/dl (8.6-10.4); GFR AFRICAN-AMERICAN > 60; GFR NON-AFRICAN AMERICAN > 60
[2017-11-22 12:06] LABS: ALB/GLOB RATIO 1.2 (1.0-2.1); ALT/SGPT 27 U/L (9-52); AST/SGOT 26 U/L (14-36)
--- NOTE | 2017-11-22 12:40 | C.PDOC ---
History Of Present Illness 22 y/o female presents to the ED complaining of pelvic and vaginal pain for the past 2 months, onset after her IUD was removed by her subject scientific research Dr. Coronado. He states she notices pain more with urination and at times, with sexual intercourse. Otherwise patient denies vaginal bleeding, vaginal discharge, dysuria, fever, nausea, or vomiting. Of note, patient delivered a baby via vaginal delivery in June 2017. Time Seen by Provider: 11/22/17 10:43 Chief Complaint (Nursing): Female Genitourinary History Per: Patient History/Exam Limitations: no limitations Onset/Duration Of Symptoms: Intermittent Episodes Current Symptoms Are (Timing): Still Present Severity: Mild Abnormal Vaginal Bleeding: No Past Medical History Reviewed: Historical Data, Nursing Documentation, Vital Signs Vital Signs: Last Vital Signs Temp 98.6 F 11/22/17 13:52 Pulse 94 H 11/22/17 13:52 Resp 17 11/22/17 13:52 BP 132/84 11/22/17 13:52 Pulse Ox 99 11/22/17 13:52 - Medical History PMH: Asthma - [facility] Procedures DELIVERY OF PRODUCTS OF CONCEPTION, EXTERNAL APPROACH (06/19/17) Family History: States: No Known Family Hx - Social History Hx Tobacco Use: No Hx Alcohol Use: No Hx Substance Use: No - Immunization History Hx Tetanus Toxoid Vaccination: No Hx Influenza Vaccination: No Hx Pneumococcal Vaccination: No Review Of Systems Constitutional: Negative for: Fever, Chills Cardiovascular: Negative for: Chest Pain Respiratory: Negative for: Shortness of Breath Gastrointestinal: Negative for: Nausea, Vomiting Genitourinary: Positive for: Pelvic Pain (and vaginal pain). Negative for: Dysuria, Hematuria, Vaginal Discharge, Vaginal Bleeding Physical Exam - Physical Exam Appears: Well, Non-toxic, No Acute Distress Skin: Normal Color, Warm, Dry Eye(s): bilateral: Normal Inspection Oral Mucosa: Moist Neck: Supple Cardiovascular: Rhythm Regular Respiratory: Normal Breath Sounds, No Rales, No Rhonchi, No Wheezing Gastrointestinal/Abdominal: Bowel Sounds, Soft, Tenderness (mild suprapubic tenderness), No Guarding, No Rebound Pelvic: Normal External Exam, No Vaginal Bleeding, No Vaginal Discharge, No Cervical Motion Tenderness, No Cervix Open, No Adnexal Tenderness, Other ( Cervix appears normal) Extremity: Bilateral: Atraumatic, Normal Color And Temperature, Normal ROM Neurological/Psych: Oriented x3 ED Course And Treatment - Laboratory Results Result Diagrams: 11/22/17 11:42 11/22/17 11:42 O2 Sat by Pulse Oximetry: 99 (RA) Pulse Ox Interpretation: Normal - CT Scan/US transvaginal US Other Rad Studies (CT/US): Read By Radiologist, Radiology Report Reviewed CT/US Interpretation: Accession No. : [id number]. Patient Name / ID : SURJIT RODRIGUEZ / [id number]. Exam Date : 11/22/2017 12:48:57 ( Approved ). Study Comment : Sex / Age : F / 22Y. Creator : Evaristo Still MD. Dictator : Evaristo Still MD. Glass Silverer : Mold Clamper : Evaristo Still MD. Approver2 : Report Date : 11/22/2017 13:06:34. My Comment : . HISTORY: PELVIC PAIN AFTER IUD REMOVAL. COMPARISON: Pelvic ultrasound dated 06/13/2017. TECHNIQUE: Grayscale, color Doppler and spectral evaluation the pelvis performed transabdominally and transvaginally. FINDINGS: UTERUS: Measures 7.5 x 3.8 x 4.3 cm. Normal in size and appearance. No fibroid or other mass lesion seen. ENDOMETRIUM: Measures 4 mm in diameter. Unremarkable. CERVIX: No cervical abnormality identified. RIGHT OVARY: Measures 3.2 x 2.4 x 2.9 cm. No solid mass. Normal flow. LEFT OVARY: Measures 2.8 x 1.7 x 2.8 cm. No solid mass. Normal flow. FREE FLUID: No significant free fluid noted. OTHER FINDINGS: None. IMPRESSION: Unremarkable pelvic ultrasound. Progress Note: Blood work, UA, Upreg and US ordered and reviewed. Patient given PO Tylenol. Reevaluation Time: 13:20 Reassessment Condition: Improved (Patient reassessed, is resting comfortably, in no current pain/distress. On exam, abdomen is soft and nonteder. Blood work , UA, US, pelvic exam unremarkable. 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 She understands she should return to ED if symptoms worsen. ) Disposition Counseled Patient/Family Regarding: Studies Performed, Diagnosis, Need For Followup, Rx Given - Disposition Disposition: HOME/ ROUTINE Disposition Time: 13:25 Condition: STABLE Additional Instructions: FOLLOW UP WITH YOUR PHLEBOTOMY SUPPORT TECH WITHIN 1 WEEK RETURN TO ER IF SYMPTOMS WORSEN Prescriptions: Ibuprofen [Motrin Tab] 600 mg PO Q6 PRN #30 tab PRN Reason: fever/pain Instructions: Acute Pelvic Pain Forms: Work/School/Gym Excuse, [facility] (Andorran) Print Language: GERMAN - Clinical Impression Clinical Impression: Pelvic pain - Scribe Statement The provider has reviewed the documentation as recorded by the Scribe (Darlene Yusuf) Provider Attestation: All medical record entries made by the Scribe were at my direction and personally dictated by me. I have reviewed the chart and agree that the record accurately reflects my personal performance of the history, physical exam, medical decision making, and the department course for this patient. I have also personally directed, reviewed, and agree with the discharge instructions and disposition.
--- NOTE | 2017-11-22 13:08 | US ---
HISTORY: PELVIC PAIN AFTER IUD REMOVAL COMPARISON: Pelvic ultrasound dated 06/13/2017. TECHNIQUE: Grayscale, color Doppler and spectral evaluation the pelvis performed transabdominally and transvaginally FINDINGS: UTERUS: Measures 7.5 x 3.8 x 4.3 cm. Normal in size and appearance. No fibroid or other mass lesion seen. ENDOMETRIUM: Measures 4 mm in diameter. Unremarkable. CERVIX: No cervical abnormality identified. RIGHT OVARY: Measures 3.2 x 2.4 x 2.9 cm. No solid mass. Normal flow. LEFT OVARY: Measures 2.8 x 1.7 x 2.8 cm. No solid mass. Normal flow. FREE FLUID: No significant free fluid noted. OTHER FINDINGS: None. IMPRESSION: Unremarkable pelvic ultrasound.
[2017-11-22 13:53] VITALS: BP 132/84; PULSE 94; RESP 17; TEMP 98.6
== END 2017-11-22 14:04 | disposition home or self-care (01) ==
LOC: C.ER 10:13
DX: R10.2 Pelvic and perineal pain (principal)

== ENCOUNTER 2018-03-04 19:41 | Emergency (ER) | payer MEDICAID ==
[2018-03-04 19:41] VITALS: BMI 24.1
[2018-03-04 20:04] VITALS: O2SAT 100
[2018-03-04] MEDS ORDERED: Sodium Chloride 0.9% 1,000 ML IV ONE (21:10)
[2018-03-04] MEDS ORDERED: Sodium Chloride 0.9% 1,000 ML ONE (21:25)
[2018-03-04 21:29] LABS: BASO % 0.5 % (0.0-2.0); EOS # 0.2 K/uL (0.0-0.7); EOS % 1.6 % (0.0-4.0); HEMOGLOBIN 13.7 g/dL (11.0-16.0); LYMPH # 3.9 K/uL (1.0-4.3); LYMPH % 39.4 % (20.0-40.0); MEAN CELL VOLUME 90.9 fL (81.0-99.0); MEAN CORPUSCULAR HEMOGLOBIN 30.6 pg (27.0-31.0); MEAN CORPUSCULAR HGB CONC 33.7 g/dL (33.0-37.0); MONO # 0.6 K/uL (0.0-0.8); MONO % 6.1 % (0.0-10.0); NEUT # 5.2 K/uL (1.8-7.0); NEUT % 52.4 % (50.0-75.0); NRBC % 0.1 % (0.0-2.0); RBC 4.47 Mil/uL (3.80-5.20); RED CELL DISTRIBUTION WIDTH 12.7 % (11.5-14.5)
[2018-03-04 21:54] LABS: ALB/GLOB RATIO 1.3 (1.0-2.1); ALBUMIN 4.1 g/dL (3.5-5.0); ALT/SGPT 24 U/L (9-52); AST/SGOT 24 U/L (14-36); BLOOD UREA NITROGEN 13 mg/dL (7-17); GFR NON-AFRICAN AMERICAN > 60
[2018-03-04 22:19] VITALS: BP 105/69; PULSE 62; RESP 16; TEMP 98.3
--- NOTE | 2018-03-04 22:45 | C.PDOC ---
History Of Present Illness 22 y/o female presents to the ED with complaints of mild headache and dizziness for 4 days. States headache is not worst of her life. Otherwise she denies any chest pain, SOB, fever, cough, or neck stiffness. Patient tried taking ibuprofen yesterday with minimal relief. No associated syncope, fall, or head trauma. Time Seen by Provider: 03/04/18 21:06 Chief Complaint (Nursing): Headache History Per: Patient History/Exam Limitations: no limitations Onset/Duration Of Symptoms: Days (x4) Current Symptoms Are (Timing): Still Present Past Medical History Reviewed: Historical Data, Nursing Documentation, Vital Signs Vital Signs: Last Vital Signs Temp 98.3 F 03/04/18 22: Pulse 62 03/04/18 22:18 Resp 16 03/04/18 22:18 BP 105/69 03/04/18 22:18 Pulse Ox 100 03/04/18 22:18 - Medical History PMH: Asthma Denies: Depression, Diabetes, HTN - [facility] Procedures DELIVERY OF PRODUCTS OF CONCEPTION, EXTERNAL APPROACH (06/19/17) Family History: States: Unknown Family Hx - Social History Hx Tobacco Use: No Hx Alcohol Use: No Hx Substance Use: No - Immunization History Hx Tetanus Toxoid Vaccination: No Hx Influenza Vaccination: No Hx Pneumococcal Vaccination: No Review Of Systems Except As Marked, All Systems Reviewed And Found Negative. Constitutional: Negative for: Fever, Chills Eyes: Negative for: Vision Change Cardiovascular: Negative for: Chest Pain Respiratory: Negative for: Shortness of Breath Gastrointestinal: Negative for: Nausea, Vomiting Musculoskeletal: Negative for: Neck Pain Neurological: Positive for: Headache, Dizziness. Negative for: Weakness, Numbness, Incoordination Physical Exam - Physical Exam Appears: Non-toxic, No Acute Distress Skin: Normal Color, Warm, Dry Head: Atraumatic, Normacephalic Eye(s): bilateral: Normal Inspection, PERRL, EOMI Oral Mucosa: Moist Neck: Normal ROM, No Midline Cervical Tenderness, No Paracervical Tenderness, Supple, Other (No meningeal signs) Chest: Symmetrical Cardiovascular: Rhythm Regular, No Murmur Respiratory: Normal Breath Sounds, No Rales, No Rhonchi, No Wheezing Gastrointestinal/Abdominal: Soft, No Tenderness, No Distention Extremity: Bilateral: Atraumatic, Normal Color And Temperature, Normal ROM Neurological/Psych: Oriented x3, Normal Speech, Normal Cranial Nerves, Normal Motor, Normal Sensation Gait: Steady ED Course And Treatment - Laboratory Results Result Diagrams: 03/04/18 21:22 03/04/18 21:22 O2 Sat by Pulse Oximetry: 100 (RA) Pulse Ox Interpretation: Normal Medical Decision Making Medical Decision Making: Impression: 22 y/o F with headache and dizziness Initial Plan: --Urine POC --CMP --CBC --IV fluids --Tylenol 650 mg PO --Meclizine 25 mg PO --Toradol 30 mg IVP --Reassess and dispo Progress/Updates: Labs reviewed, and are unremarkable. 22:05 On re-evaluation patient reports feeling better and is stable for discharge home. Provided with prescriptions for Meclizine and Motrin. Educated patient regarding diagnosis and follow up instructions. Disposition Counseled Patient/Family Regarding: Diagnosis, Need For Followup, Rx Given - Disposition Referrals: [facility] [Outside] [facility] [Outside] Disposition: HOME/ ROUTINE Disposition Time: 21:30 Condition: IMPROVED Additional Instructions: JENNIFER ANDRADE, thank you for letting us take care of you today. The emergency medical care you received today was directed at your acute symptoms. If you were prescribed any medication, please fill it and take as directed. It may take several days for your symptoms to resolve. Return to the Emergency Department if your symptoms worsen, do not improve, or if you have any other problems. Please contact your doctor or call one of the physicians/clinics you have been referred to that are listed on the Patient Visit Information form that is in cluded in your discharge packet. Bring any paperwork you were given at discharge with you along with any medications you are taking to your follow up visit. Our treatment cannot replace ongoing medical care by a primary care provider outside of the emergency department. Thank you for allowing the [facility] team to be part of your care today. Follow up with the clinic this week for re-evaluation and further management. JENNIFER ANDRADE, gilda por dejarnos cuidar de usted hoy. La atencin mdica de emergencia que recibi hoy se dirigi a radha sntomas agudos. Si le recetaron algn medicamento, llnelo y tmelo segn las indicaciones. Los sntomas pueden tardar varios dupont en resolverse. Regrese al Departamento de Emergencias si radha sntomas empeoran, no mejoran o si tiene otros problemas. Comunquese con rivas mdico o llame a rosa maria de los mdicos / clnicas a los que ba s silke referido que figuran en el formulario de Informacin de visita al paciente que se incluye en rivas paquete de yeyo. Lleve con usted a rivas consulta de seguimiento toda la documentacin que recibi del yeyo junto con los medicamentos que est tomando. Nuestro tratamiento no puede reemplazar la atencin mdica continua por parte de un proveedor de atencin primaria fuera del departamento de emergencias. Gilda por permitir que el equipo de [facility] sea parte de rivas atencin hoy. Kasey un seguimiento con la clnica esta semana para reevaluar y administrar ms. Prescriptions: Ibuprofen [Motrin] 600 mg PO Q6 PRN #20 tab PRN Reason: Pain, Moderate (4-7) Meclizine [Meclizine*] 25 mg PO Q6 PRN #20 tab PRN Reason: Dizziness Instructions: Vertigo (a Type of Dizziness) (DC), Headache, Adult (DC) Forms: Gen Discharge Inst Serbian, [employer] (Serbian), Work Excuse Print Language: FIJIAN - POA Present On Arrival: None - Clinical Impression Clinical Impression: Dizziness - Scribe Statement The provider has reviewed the documentation as recorded by the Scribe (Darlene Yusuf) Provider Attestation: All medical record entries made by the Scribe were at my direction and personally dictated by me. I have reviewed the chart and agree that the record accurately reflects my personal performance of the history, physical exam, medical decision making, and the department course for this patient. I have also personally directed, reviewed, and agree with the discharge instructions and disposition.
== END 2018-03-04 22:18 | disposition home or self-care (01) ==
LOC: C.ER 19:41 → SUPCPDRO 19:41 → C.ER 22:18
DX: R42 Dizziness and giddiness (principal)

== ENCOUNTER 2018-03-12 09:00 | Emergency (ER) | payer MEDICAID ==
[2018-03-12 09:00] VITALS: BMI 24.1
[2018-03-12 09:10] VITALS: BP 108/72; PULSE 65; RESP 18; TEMP 98.9; O2SAT 100
--- NOTE | 2018-03-12 10:18 | C.PDOC ---
History Of Present Illness 22 y/o female presents to ED with c/o left sided headache associated with neck stiffness after loose door fell on her head. Patient denies loc, nausea, vomiting, vision changes, weakness, numbness or any other complaints at this time. Time Seen by Provider: 03/12/18 09:50 Chief Complaint (Nursing): Headache History Per: Patient History/Exam Limitations: no limitations Onset/Duration Of Symptoms: Hrs Current Symptoms Are (Timing): Still Present Past Medical History Reviewed: Historical Data, Nursing Documentation, Vital Signs Vital Signs: Last Vital Signs Temp 98.9 F 03/12/18 09:07 Pulse 65 03/12/18 09:07 Resp 18 03/12/18 09:07 BP 108/72 03/12/18 09:07 Pulse Ox 100 03/12/18 09:07 - Medical History PMH: Asthma Surgical History: No Surg Hx - [facility] Procedures DELIVERY OF PRODUCTS OF CONCEPTION, EXTERNAL APPROACH (06/19/17) Family History: States: No Known Family Hx - Social History Hx Tobacco Use: No Hx Alcohol Use: No Hx Substance Use: No - Immunization History Hx Tetanus Toxoid Vaccination: No Hx Influenza Vaccination: No Hx Pneumococcal Vaccination: No Review Of Systems Except As Marked, All Systems Reviewed And Found Negative. Musculoskeletal: Positive for: Neck Pain Neurological: Positive for: Headache Physical Exam - Physical Exam Appears: Non-toxic, No Acute Distress Skin: Warm, Dry, No Rash Head: Atraumatic, Normacephalic, No Abrasion, No Laceration Eye(s): bilateral: Normal Inspection Oral Mucosa: Moist Neck: Paracervical Tenderness, No Step Off Deformity Cardiovascular: Rhythm Regular Respiratory: Normal Breath Sounds, No Rales, No Rhonchi, No Wheezing Gastrointestinal/Abdominal: Soft, No Tenderness, No Guarding, No Rebound Neurological/Psych: Oriented x3, Normal Speech, Normal Cognition ED Course And Treatment O2 Sat by Pulse Oximetry: 100 (RA) Pulse Ox Interpretation: Normal Medical Decision Making Medical Decision Making: Assessment: Minor head injury, cervical strain no loc, no ams, no skull depression, no distracting injury, no swelling or hematoma on heent exam. will discharge home. Disposition Counseled Patient/Family Regarding: Studies Performed, Diagnosis, Need For Followup, Rx Given - Disposition Referrals: [facility] [Outside] Disposition: HOME/ ROUTINE Disposition Time: 10:40 Condition: STABLE Additional Instructions: follow up with your doctor or medical clinic within 2 days call to make an appointment take medications as prescribed return to ER if symptoms worsens or progress Prescriptions: Naproxen [Naprosyn] 500 mg PO BID PRN #16 tab PRN Reason: Pain, Moderate (4-7) Instructions: Closed Head Injury (DC), Cervical Muscle Strain (DC) Forms: Gen Discharge Inst Kinyarwanda, [facility] (Kinyarwanda), Work Excuse - Clinical Impression Clinical Impression: Cervical strain, Head injury - Scribe Statement The provider has reviewed the documentation as recorded by the Bibi Claros All medical record entries made by the Bibi were at my direction and pe rsonally dictated by me. I have reviewed the chart and agree that the record accurately reflects my personal performance of the history, physical exam, medical decision making, and the department course for this patient. I have also personally directed, reviewed, and agree with the discharge instructions and disposition.
--- NOTE | 2018-03-12 14:39 | RAD ---
Date of service: 03/12/2018 PROCEDURE: Cervical Spine Radiographs. HISTORY: Pain. COMPARISON: None. FINDINGS: BONES: Alignment maintained. No fracture. Dens Intact. DISC SPACES: Normal. SOFT TISSUES: Normal. No prevertebral soft tissue swelling. OTHER FINDINGS: None. IMPRESSION: Normal cervical spine radiographs
== END 2018-03-12 10:54 | disposition home or self-care (01) ==
LOC: C.ER 09:00
DX: S16.1XXA Strain of muscle, fascia and tendon at neck level, initial encounter (principal); S09.90XA Unspecified injury of head, initial encounter; W22.8XXA Striking against or struck by other objects, initial encounter

== ENCOUNTER 2018-05-13 12:24 | Emergency (ER) | payer MEDICAID ==
[2018-05-13 12:24] VITALS: BMI 24.1
[2018-05-13 12:35] VITALS: BP 118/71; PULSE 88; RESP 18; TEMP 98.5; O2SAT 100
--- NOTE | 2018-05-13 13:20 | C.PDOC ---
History Of Present Illness 22 y/o female presents to the ED complaining of flulike symptoms since yesterday. Associated with bodyaches, subjective fever, mild cough, and sore throat. Took Tylenol just prior to arrival. No recent travel. Did not receive flu shot this season. Patient otherwise denies any SOB, wheezing, chest pain, sputum production, or other associated symptoms. Time Seen by Provider: 05/13/18 12:42 Chief Complaint (Nursing): Flu-like Symptoms History Per: Patient History/Exam Limitations: no limitations Onset/Duration Of Symptoms: Days (x2) Current Symptoms Are (Timing): Still Present Location Of Pain: Throat, Diffuse Myalgias Past Medical History Reviewed: Historical Data, Nursing Documentation, Vital Signs Vital Signs: Last Vital Signs Temp 98.5 F 05/13/18 12:30 Pulse 88 05/13/18 12:30 Resp 18 05/13/18 12:30 BP 118/71 05/13/18 12:30 Pulse Ox 100 05/13/18 12:30 - Medical History PMH: Asthma Denies: Depression, Diabetes, HTN Surgical History: No Surg Hx - [facility] Procedures DELIVERY OF PRODUCTS OF CONCEPTION, EXTERNAL APPROACH (06/19/17) Family History: States: Unknown Family Hx - Social History Hx Tobacco Use: No Hx Alcohol Use: No Hx Substance Use: No - Immunization History Hx Tetanus Toxoid Vaccination: No Hx Influenza Vaccination: No Hx Pneumococcal Vaccination: No Review Of Systems Constitutional: Positive for: Fever (subjective), Other (Generalized bodyaches) ENT: Positive for: Throat Pain. Negative for: Nose Congestion Cardiovascular: Negative for: Chest Pain, Light Headedness Respiratory: Positive for: Cough. Negative for: Shortness of Breath, Sputum, Wheezing Gastrointestinal: Negative for: Nausea, Vomiting, Diarrhea Neurological: Negative for: Headache, Dizziness Physical Exam - Physical Exam Appears: Non-toxic, No Acute Distress Skin: Normal Color, Warm, No Rash Head: Atraumatic, Normacephalic Eye(s): bilateral: Normal Inspection, PERRL, EOMI Nose: Normal, No Discharge Oral Mucosa: Moist Throat: Normal, No Erythema, No Exudate Neck: Normal ROM Chest: Symmetrical Cardiovascular: Rhythm Regular, No Murmur Respiratory: Normal Breath Sounds, No Rales, No Rhonchi, No Wheezing, Other (Occasional dry cough) Gastrointestinal/Abdominal: Soft, No Tenderness, No Distention Extremity: Bilateral: Atraumatic, Normal Color And Temperature Pulses: Left Radial: Normal, Right Radial: Normal Neurological/Psych: Oriented x3, Normal Speech ED Course And Treatment O2 Sat by Pulse Oximetry: 100 (RA) Pulse Ox Interpretation: Normal Medical Decision Making Medical Decision Making: Impression: Cough, Bodyaches, Sore throat Plan: --Flu swab Disposition - Disposition Referrals: [facility] Kevin Finley, [Non-Staff] - Disposition: HOME/ ROUTINE Disposition Time: 14:00 Condition: GOOD Additional Instructions: JENNIFER ANDRADE, thank you for letting us take care of you today. The emergency medical care you received today was directed at your acute symptoms. If you were prescribed any medication, please fill it and take as directed. It may take several days for your symptoms to resolve. Return to the Emergency Department if your symptoms worsen, do not improve, or if you have any other problems. Please contact your doctor or call one of the physicians/clinics you have been referred to that are listed on the Patient Visit Information form that is included in your discharge packet. Bring any paperwork you were given at discharge with you along with any medications you are taking to your follow up visit. Our treatment cannot replace ongoing medical care by a primary care provider outside of the emergency department. Thank you for allowing the [facility] team to be part of your care today. Drink fluids throughout the day to maintain your hydration. Follow up with your primary care doctor in 2-3 days for re-evaluation and and further management. JENNIFER ANDRADE, gilda por dejarnos cuidar de usted hoy. La atencin mdica de emergencia que recibi hoy se dirigi a radha sntomas agudos. Si le recetaron algn medicamento, llnelo y tmelo segn las indicaciones. Los sntomas pueden tardar varios dupont en resolverse. Regrese al Departamento de Emergencias si radha sntomas empeoran, no mejoran o si tiene otros problemas. Comunquese con rivas mdico o llame a rosa maria de los mdicos / clnicas a los que ba sido referido que figuran en el formulario de Informacin de visita al paciente que se incluye en rivas paquete de yeyo. Lleve todos los documentos que le entregaron al momento del yeyo junto con todos los medicamentos que est tomando para rivas visita de seguimiento. Nuestro tratamiento no puede reemplazar la atencin mdica continua por parte de un proveedor de atencin primaria fuera del departamento de emergencias. Gilda por permitir que el equipo de [facility] sea parte de rivas atencin hoy. Belkis lquidos josiah todo el da para mantener rivas hidratacin. Kasey un seguimiento con rivas mdico de atencin primaria en 2 o 3 dupont para la reevaluacin y la administracin posterior. Prescriptions: Ibuprofen [Motrin] 600 mg PO Q6 PRN #20 tab PRN Reason: Pain, Moderate (4-7) Instructions: Viral Syndrome (DC) Forms: Gen Discharge Inst Latvian, [employer] (Latvian) Print Language: SOUTH KOREAN - Clinical Impression Clinical Impression: Viral syndrome - Scribe Statement The provider has reviewed the documentation as recorded by the Scribe Darlene Yusuf Provider Attestation: All medical record entries made by the Scribe were at my direction and personally dictated by me. I have reviewed the chart and agree that the record accurately reflects my personal performance of the history, physical exam, medical decision making, and the department course for this patient. I have also personally directed, reviewed, and agree with the discharge instructions and disposition.
== END 2018-05-13 14:25 | disposition home or self-care (01) ==
LOC: C.ER 12:24
DX: B34.9 Viral infection, unspecified (principal)

== ENCOUNTER 2018-07-04 09:23 | Emergency (ER) | payer MEDICAID ==
[2018-07-04 09:23] VITALS: BMI 24.1
[2018-07-04 09:34] VITALS: BP 112/69; PULSE 66; RESP 20; TEMP 97.5; O2SAT 100
[2018-07-04 10:14] LABS: HCG,QUALITATIVE URINE NEGATIVE (NEGATIVE)
[2018-07-04 10:28] LABS: SQUAMOUS EPITHIAL 2 /hpf (0-5); URINE BILIRUBIN NEGATIVE (NEGATIVE); URINE BLOOD NEGATIVE (NEGATIVE); URINE CLARITY Clear (Clear); URINE COLOR Yellow (YELLOW); URINE GLUCOSE (UA) NORMAL (Normal); URINE LEUKOCYTE ESTERASE NEG Leu/uL (Negative); URINE PROTEIN NEGATIVE (NEGATIVE); URINE UROBILINOGEN NORMAL mg/dL (0.2-1.0)
--- NOTE | 2018-07-04 10:58 | C.PDOC ---
History Of Present Illness 23 y/o female presents to the ER complaining of cramping lower abdominal pain and painful multiple lesions to vaginal and anal areas which have been present for the past 2 weeks. Patient states that she has been plucking the lesions manually. She notes that there were was bleeding from the lesions when she removed them.Denies having fever,chills, nausea, vomiting, dysuria, hematuria, vaginal bleeding, and vaginal discharge. Time Seen by Provider: 07/04/18 09:36 Chief Complaint (Nursing): Female Genitourinary History Per: Patient History/Exam Limitations: no limitations Onset/Duration Of Symptoms: Days Current Symptoms Are (Timing): Still Present Severity: Moderate Past Medical History Reviewed: Historical Data, Nursing Documentation, Vital Signs Vital Signs: Last Vital Signs Temp 97.5 F L 07/04/18 09:29 Pulse 66 07/04/18 09:29 Resp 20 07/04/18 09:29 BP 112/69 07/04/18 09:29 Pulse Ox 100 07/04/18 09:29 - Medical History PMH: Asthma Denies: Depression, Diabetes, HTN Surgical History: No Surg Hx - [facility] Procedures DELIVERY OF PRODUCTS OF CONCEPTION, EXTERNAL APPROACH (06/19/17) Family History: States: No Known Family Hx - Social History Hx Tobacco Use: No Hx Alcohol Use: No Hx Substance Use: No - Immunization History Hx Tetanus Toxoid Vaccination: No Hx Influenza Vaccination: No Hx Pneumococcal Vaccination: No Review Of Systems Except As Marked, All Systems Reviewed And Found Negative. Constitutional: Negative for: Fever, Chills Gastrointestinal: Positive for: Abdominal Pain. Negative for: Nausea, Vomiting Physical Exam - Physical Exam Appears: Non-toxic, No Acute Distress Skin: Normal Color, Warm, Dry Head: Atraumatic, Normacephalic Eye(s): bilateral: Normal Inspection Nose: Normal Oral Mucosa: Moist Neck: Supple Chest: Symmetrical Cardiovascular: Rhythm Regular Respiratory: Normal Breath Sounds, No Rales, No Rhonchi, No Wheezing Gastrointestinal/Abdominal: Normal Exam, Soft, No Tenderness, No Distention, No Guarding, No Rebound Pelvic: Other (2-3 small vaginal and anal warts) Neurological/Psych: Oriented x3, Normal Speech ED Course And Treatment - Laboratory Results Lab Results: Urine Color Yellow (YELLOW) 07/04/18 10:02 Urine Clarity Clear (Clear) 07/04/18 10:02 Urine pH 6.0 (5.0-8.0) 07/04/18 10:02 Ur Specific [place] 1.018 (1.003-1.030) 07/04/18 10:02 Urine Protein Negative mg/dL (NEGATIVE) 07/04/18 10:02 Urine Glucose (UA) Normal mg/dL (Normal) 07/04/18 10:02 Urine Ketones Negative mg/dL (NEGATIVE) 07/04/18 10:02 Urine Blood Negative (NEGATIVE) 07/04/18 10:02 Urine Nitrate Negative (NEGATIVE) 07/04/18 10:02 Urine Bilirubin Negative (NEGATIVE) 07/04/18 10:02 Urine Urobilinogen Normal mg/dL (0.2-1.0) 07/04/18 10:02 Ur Leukocyte Esterase Neg Sara/uL (Negative) 07/04/18 10:02 Urine RBC (Auto) < 1 /hpf (0-3) 07/04/18 10:02 Ur Squamous Epith Cells 2 /hpf (0-5) 07/04/18 10:02 Urine HCG, Qual Negative (NEGATIVE) 07/04/18 10:02 Urine HCG, Qual Negative (NEGATIVE) 07/04/18 10:02 O2 Sat by Pulse Oximetry: 100 (RA) Pulse Ox Interpretation: Normal Medical Decision Making Medical Decision Making: Plan: --HCG, Qual. --UA Disposition Counseled Patient/Family Regarding: Diagnosis - Disposition Disposition: HOME/ ROUTINE Disposition Time: 10:57 Condition: STABLE Additional Instructions: Siga on si gynecologa. Forms: [facility] (Greenlandic), Gen Discharge Inst Greenlandic - Clinical Impression Clinical Impression: Anal warts - Scribe Statement The provider has reviewed the documentation as recorded by the Mayelinibhari Damon Provider Attestation: All medical record entries made by the Mayelinibe were at my direction and personally dictated by me. I have reviewed the chart and agree that the record accurately reflects my personal performance of the history, physical exam, medical decision making, and the department course for this patient. I have also personally directed, reviewed, and agree with the discharge instructions and disposition.
== END 2018-07-04 11:09 | disposition home or self-care (01) ==
LOC: C.ER 09:23
DX: A63.0 Anogenital (venereal) warts (principal)